=== PATIENT | female | born 1960 | race Caucasian/White ===

== ENCOUNTER 2016-11-10 06:51 | Day surgery (SDC) | payer BC ==
[~2016-11-10] VITALS: Ht 152.4 cm; Wt 76.0 kg
[~2016-11-10 06:51] MED LIST: ADVIL200 MG PO; BIOTIN1000 MCG PO; CENTRUM SILVER1 EAC4 PO; GREEN TEA EXTR150 MG PO; GREEN TEA1 CAPSULE PO; GUMMI BEAR MUL1 EACH PO; VITAMIN B122500 MCG PO; VITAMIN D31000 UNIT PO
[2016-11-10] MEDS ORDERED: CLARITIN,ALAVAR10 MG PO (07:27)
[2016-11-10 07:30] VITALS: BP 116/72
[2016-11-10] MEDS ORDERED: NORCO 5/3251 TABLET PO (09:58)
[2016-11-10 11:33] VITALS: BP 116/69
[2016-11-10 12:45] VITALS: BP 111/62
[2016-11-10 14:25] VITALS: BP 110/55
== END 2016-11-10 14:35 | disposition home or self-care (01) ==
LOC: SDC 06:51
PROC: 0UBC8ZX Excision of Cervix, Via Natural or Artificial Opening Endoscopic, Diagnostic (ICD-10-PCS; principal; 2016-11-10)
PROC: 0UB98ZX Excision of Uterus, Via Natural or Artificial Opening Endoscopic, Diagnostic (ICD-10-PCS; principal; 2016-11-10)
PROC: 0UDB8ZX Extraction of Endometrium, Via Natural or Artificial Opening Endoscopic, Diagnostic (ICD-10-PCS; principal; 2016-11-10)
PROC: 0UBM0ZZ Excision of Vulva, Open Approach (ICD-10-PCS; 2016-11-10)
DX: D07.1 Carcinoma in situ of vulva (principal); N84.1 Polyp of cervix uteri; N84.0 Polyp of corpus uteri; N95.0 Postmenopausal bleeding; Z80.0 Family history of malignant neoplasm of digestive organs; Z87.891 Personal history of nicotine dependence
CPT/HCPCS: 88305; 88342 TC; J0131; J0690; J1100; J1170; J1885; J2250; J2405; J2765; J3010